=== PATIENT | male | born 1950 | race Caucasian/White ===

== ENCOUNTER 2024-05-30 06:13 | Day surgery (SDC) | payer OTHER, SELFPAY ==
[2024-05-21 13:54] LABS: Hematocrit 41.2 % (39.0-52.0); Hemoglobin 13.8 g/dL (13.0-18.0); Mean Corp Hgb Conc. 33.5 g/dL (33.0-37.0); Mean Corpuscular Hgb 31.2 pg (27.0-31.0); Mean Corpuscular Volume 93.2 fL (80.0-94.0); Mean Platelet Volume 10.3 fL (7.4-10.4); Platelet Count 232 10^3/uL (130-400); Red Blood Cell Count 4.42 10^6/uL (4.70-6.10); Red Cell Dist. Width 14.4 % (11.5-14.5); White Blood Cell Count 4.2 10^3/uL (4.8-10.8)
[2024-05-21 14:24] VITALS: BMI 41.1
[2024-05-21 14:28] LABS: Blood Urea Nitrogen 16 mg/dl (9-20); Calcium 9.8 mg/dl (8.4-10.2); Carbon Dioxide 26 mmol/L (22-30); Chloride 106 mmol/L (98-107); Estimated Creatinine Clearance 84 ml/min; Glucose 107 mg/dl (70-99); Sodium 141 mmol/L (135-145); eGFR > 60.00
[2024-05-30] VITALS (10 sets, daily range): BP systolic 161–199; BP diastolic 67–134; BMI 41.1
[2024-05-30] MEDS: NORMOSOL-R 1000 IV (09:18)
[2024-05-30] MEDS: TYLENOL 1000 MG PO (09:18)
== END 2024-05-30 15:16 | disposition home or self-care (01) ==
LOC: SDS 06:13
PROVIDERS: ATTENDING PHYSICIAN Surgery; FAMILY PHYSICIAN Family Medicine
DX: K40.90 Unilateral inguinal hernia, without obstruction or gangrene, not specified as recurrent (principal)
CPT/HCPCS: 49650; 36415; 80048; 85027; 93005; C1781